=== PATIENT | male | born 1950 | race Caucasian/White ===

== ENCOUNTER 2016-07-09 06:18 | Day surgery (SDC) | payer MEDICARE, BC ==
[~2016-07-09 06:18] MED LIST: ACETAMINOPHEN 1000MG/100 ML PREMIX IV ONE
[2016-07-09] MEDS ORDERED: HYDROMORPHONE HCL 2 MG/ML VIAL IV ONE ×2 (13:42→14:28)
[2016-07-09] MEDS ORDERED: CEFAZOLIN 2 Gram 50 ML IVPB ONE (13:42)
[2016-07-09] MEDS ORDERED: HYDROCODONE/APAP 7.5/325MG TABLET PO ONE (13:42)
[2016-07-09] MEDS ORDERED: SEVOFLURANE 250 ML INH ONE (14:28)
[2016-07-09] MEDS ORDERED: GLYCOPYRROLATE 0.2 MG/ML ML IV ONE (14:28)
[2016-07-09] MEDS ORDERED: KETOROLAC 30 MG/ML VIAL IVP ONE (14:28)
[2016-07-09] MEDS ORDERED: MIDAZOLAM HCL 2MG/2ML VIAL IV ONE (14:28)
[2016-07-09] MEDS ORDERED: PROPOFOL 10 MG/ML VIAL IV ONE (14:28)
[2016-07-09] MEDS ORDERED: FENTANYL PF 100MCG/2ML VIAL IV ONE (14:28)
[2016-07-09] MEDS ORDERED: LIDOCAINE 2% MDV (20MG/ML) 20ML VIAL IV ONE (14:28)
--- NOTE | 2016-07-10 13:30 | Operative Note ---
DATE OF SURGERY: 07/09/2016 SURGEON: Otf Jones DO REFERRING PHYSICIAN: Eduardo Dexter DO PREOPERATIVE DIAGNOSIS: Rupture of the right distal biceps tendon. POSTOPERATIVE DIAGNOSIS: Rupture of the right distal biceps tendon. OPERATION: Repair of right distal biceps tendon. Anesthesia: General. PROCEDURE: This 66-year-old male was taken to the operating room and placed in the supine position on the operating room table, where general anesthesia was induced. The right upper extremity was then elevated. It was prepped with Hibiclens and draped in the usual sterile fashion. It was exsanguinated and the tourniquet inflated to 250 mmHg. An "S" type incision was made anteriorly in the forearm into the antecubital fossa. Dissection was carried down through the skin and subcutaneous tissue. Hemostasis obtained via electrocautery. The fascia was divided to expose the ruptured biceps tendon, which was easily identified. This was then removed from the wound and thoroughly debrided to healthy tissue. There appeared to be an avulsion directly off of the tuberosity. After debridement, a Pelion-type stitch was placed in the distal tendon, leaving long ends to pass the tendon; this was #2 FiberWire. We then directed our attention to the posterior aspect of the dorsal surface of the forearm and an incision was made down through the skin and subcutaneous tissue, centering over the radial tuberosity. A muscle-splitting incision was used. The tuberosity easily identified. It was debrided, removing ruptured tendon from the tuberosity. We then drilled a hole in the tuberosity to accept the prepared biceps tendon and it was made large enough to accommodate the tendon into this hole. We then drilled two holes in the back in the opposite side of the radial bone from the tuberosity, and a Hewson suture passer was used to pass through these holes to grab one limb of each suture. The tendon was then drawn with the passing sutures and the tendon drawn into the hole that it was previously prepared, and then the sutures were tied over a bone island on the opposite side of the radius. This was determined to be satisfactory, and the wound was irrigated with lactated Ringer's solution and the fascia was repaired with 3-0 Vicryl, the subcutaneous tissue closed with a seam suture , and the skin with a running 4-0 nylon suture. The anterior wound was also thoroughly irrigated and the subcutaneous tissue closed with 3-0 Vicryl and the skin with a running 4-0 nylon suture. Sterile dressings with plaster splint immobilization was applied. The patient was taken to the recovery room in satisfactory condition. GROSS PATHOLOGY: This patient demonstrated a rupture of the distal biceps tendon, which was repaired with a two-incision technique in the manner described above. NESTOR
== END 2016-07-09 10:15 | disposition home or self-care (01) ==
LOC: SUR 06:18
PROVIDERS: ATTEND Orthopaedic Surgery
DX: S53.49 Other sprain of elbow (principal); E78.00 Pure hypercholesterolemia, unspecified; I10 Essential (primary) hypertension
CPT/HCPCS: J1885